=== PATIENT | female | born 1990 | race Hispanic/Latino ===

== ENCOUNTER 2018-02-10 06:50 | Emergency (ER) | payer MEDICAID | END 2018-02-10 08:07 | disposition home or self-care (01) | LOC: EDH 06:50 | DX: O99.512 Diseases of the respiratory system complicating pregnancy, second trimester (principal); J02.9 Acute pharyngitis, unspecified; Z3A.18 18 weeks gestation of pregnancy; Z88.1 Allergy status to other antibiotic agents; Z79.899 Other long term (current) drug therapy | CPT/HCPCS: 87880 ==

== ENCOUNTER 2018-07-11 07:52 | Inpatient (IN) | payer MEDICAID | END 2018-07-12 15:20 | disposition home or self-care (01) | LOC: EDH 07:52 → LDH 07:53 → WSH 16:05 | PROC: 10E0XZZ Delivery of Products of Conception, External Approach (ICD-10-PCS; principal; ~2018-07-11) | DX: O80 Encounter for full-term uncomplicated delivery (principal); Z37.0 Single live birth; Z3A.40 40 weeks gestation of pregnancy ==

== ENCOUNTER 2020-04-05 14:06 | Emergency (ER) | payer MEDICAID, OTHER ==
[~2020-04-05 14:06] MED LIST: PNV1TABL17 PO
[2020-04-05] MEDS ORDERED: L.E.T. GEL 4%/0.5%/0.18% 3ML 3 ML/SYR SYG TP ONE (14:17)
[2020-04-05] MEDS ORDERED: TETANUS/DIPHTHERIA TOXOID [ADULT] 0.5 ML VIAL IM ONE (14:27)
[2020-04-05] MEDS ORDERED: OCTYL 2-CYANOACRYLATE 1 EACH TP ONE (14:51)
== END 2020-04-05 15:50 | disposition home or self-care (01) ==
LOC: EDH 14:06
DX: S61.412A Laceration without foreign body of left hand, initial encounter (principal); W25.XXXA Contact with sharp glass, initial encounter; Y93.G1 Activity, food preparation and clean up; Y92.89 Other specified places as the place of occurrence of the external cause; Y99.8 Other external cause status; Z88.1 Allergy status to other antibiotic agents
CPT/HCPCS: 12002; 73130; 90471; 90714